=== PATIENT | female | born 1960 | race Caucasian/White ===

== ENCOUNTER → 2016-08-31 | Outpatient (CLI) | payer OTHER ==
--- NOTE | 2016-08-31 13:37 | REPMRS ---
Patient History The patient states she had a clinical breast exam in 08/03 Patient is postmenopausal and is nulliparous. Family history of breast cancer in mother at age 55. Took hormonal contraceptives for 20 years. Digital Woman Screen Mammo: August 31, 2016 - Exam #: [id number] Bilateral CC and MLO view(s) were taken. Technologist: Rosi Casey, Technologist Prior study comparison: July 04, 2015, digital woman screen mammo performed at [facility] to [facility]. June 07, 2014, digital woman screen mammo performed at [facility] to [facility]. FINDINGS: There are scattered fibroglandular densities. There has been no change in the appearance of the mammogram from the prior studies. There is a mild amount of residual fibroglandular tissue which is fairly symmetric. There is no interval development of dominant mass, architectural distortion, or clustered microcalcification suggestive of malignancy. ASSESSMENT: BI-RADS/ACR category 1 mammogram. Negative. Recommendation Routine screening mammogram in 1 year (for women over age 40). This mammogram was interpreted with the aid of an FDA-approved computer-aided dectection system. Electronically Signed By: Austin Guadarrama MD 08/31/16 [id number]
== END ==
LOC: M WHC 13:00
PROVIDERS: ATTEND Obstetrics & Gynecology
DX: Z12.31 Encounter for screening mammogram for malignant neoplasm of breast (principal); Z80.3 Family history of malignant neoplasm of breast; Z79.3 Long term (current) use of hormonal contraceptives

== ENCOUNTER → 2017-09-26 | Outpatient (CLI) | payer OTHER | LOC: M WHC 10:57 | DX: Z12.31 Encounter for screening mammogram for malignant neoplasm of breast (principal); Z80.3 Family history of malignant neoplasm of breast; Z78.0 Asymptomatic menopausal state | CPT/HCPCS: 77067 ==

== ENCOUNTER → 2019-01-13 | Outpatient (REF) | payer OTHER ==
[2019-01-16 14:28] LABS: HPV HYBRID CAPTURE II Negative (Negative)
== END ==
LOC: M SFHCWAGY 13:28
PROVIDERS: ATTEND Nurse Practitioner Women's Health
DX: Z12.4 Encounter for screening for malignant neoplasm of cervix (principal)
CPT/HCPCS: 87624; G0123

== ENCOUNTER → 2019-01-13 | Outpatient (CLI) | payer OTHER ==
--- NOTE | 2019-01-13 14:16 | REPMRS ---
Patient History The patient states she had a clinical breast exam in 12/2018. Family history of breast cancer at age 55 in mother. Took hormonal contraceptives for 20 years. 3D TOMOSYNTHESIS WAS PERFORMED. Digital Woman Screen Mammo: January 13, 2019 - Exam #: [id number] Bilateral CC and MLO view(s) were taken. Technologist: Rosi Casey, Technologist Prior study comparison: September 26, 2017, digital woman screen mammo performed at [facility]. August 31, 2016, digital woman screen mammo performed at [id number]. FINDINGS: There are scattered fibroglandular densities. There has been no change in the appearance of the mammogram from the prior studies. There is a mild amount of residual fibroglandular tissue which is fairly symmetric. There is no interval development of dominant mass, architectural distortion, or clustered microcalcification suggestive of malignancy. Assessment: BI-RADS/ACR category 1 mammogram. Negative Mammogram. Recommendation Routine screening mammogram in 1 year (for women over age 40). This mammogram was interpreted with the aid of an FDA-approved computer-aided dectection system. THE LIFETIME RISK OF BREAST CANCER IS 20.9%, THEREFORE SUPPLEMENTAL SCREENING MRI OF THE BREASTS IS RECOMMENDED IN 6 MONTHS. Electronically Signed By: Austin Guadarrama MD 01/13/19 [id number]
== END ==
LOC: M WHC 13:09
PROVIDERS: ATTEND Nurse Practitioner Women's Health
DX: Z12.31 Encounter for screening mammogram for malignant neoplasm of breast (principal); Z85.3 Personal history of malignant neoplasm of breast; Z92.0 Personal history of contraception

== ENCOUNTER → 2020-01-15 | Outpatient (CLI) | payer BC, OTHER ==
--- NOTE | 2020-01-15 15:26 | REPMRS ---
Patient History The patient states she had a clinical breast exam in 2019. Family history of breast cancer at age 55 in mother. Took hormonal contraceptives for 20 years. Digital Woman Screen Mammo: January 15, 2020 - Exam #: [id number] Bilateral CC and MLO view(s) were taken. Technologist: Serena Graham, Technologist Prior study comparison: January 13, 2019, bilateral digital woman screen mammo performed at [facility]. September 26, 2017, digital woman screen mammo performed at [facility]. August 31, 2016, digital woman screen mammo performed at [facility]. FINDINGS: There are scattered fibroglandular densities. The Volpara volumetric breast density category is:B. There has been no change in the appearance of the mammogram from the prior studies. There is a mild amount of scattered fibroglandular density which is fairly symmetric. There is no interval development of dominant mass, architectural distortion, or grouped microcalcification suggestive of malignancy. 3-D tomosynthesis shows no additional findings. Assessment: BI-RADS/ACR category 1 mammogram. Negative Mammogram. Recommendation Breast MRI of both breasts in 6 months. Routine screening mammogram of both breasts in 1 year (for women over age 40). This patient's Lifetime Breast Cancer Risk is estimated at 20.4 %. Annual screening Breast MRI scanniing is recommended for patient's whose lifetime risk assessment is over 20%. This mammogram was interpreted with the aid of an FDA-approved computer-aided dectection system. Electronically Signed By: Landon Antoine MD 01/15/20 0496
== END ==
LOC: M WHC 13:21
PROVIDERS: ATTEND Nurse Practitioner Women's Health
DX: Z12.31 Encounter for screening mammogram for malignant neoplasm of breast (principal); Z12.4 Encounter for screening for malignant neoplasm of cervix; N88.8 Other specified noninflammatory disorders of cervix uteri; Z80.3 Family history of malignant neoplasm of breast; Z92.0 Personal history of contraception
CPT/HCPCS: 77063; 77067; G0123

== ENCOUNTER → 2020-06-23 | Outpatient (CLI) | payer BC ==
[~2020-06-23] MED LIST: PROHANCE 279.3MG/ML 5ML VIAL As Ordered ONE
--- NOTE | 2020-06-24 08:08 | REP ---
INDICATION: FAM HX OF BREAST CA, DENSE BREASTS. COMPARISON: Comparison mammography January 15, 2020. TECHNIQUE: Three Evonne MRI imaging was performed with a dedicated breast coil. Axial, coronal, and sagittal T1 and T2 weighted scans were obtained with and without fat saturation in the usual fashion. The study includes dynamically acquired post gadolinium-enhanced imaging with image subtraction. Maximum intensity projection and multi planar reformation imaging is included as well. This study is interpreted with the aid of Noteleaf, an FDA approved computer aided detection (CAD) software program, on a dedicated breast MRI workstation. The gadolinium enhancement dose is 10 mL of intravenous ProHance. FINDINGS: There is a mild pattern of fibroglandular tissue present bilaterally. No suspicious morphologic abnormality is seen in either breast on T1 and T2 weighted high-resolution images. There is no evidence of axillary lymphadenopathy or cystic disease. Dynamically acquired sequential postcontrast images show no suspicious focus of enhancement and/or washout in either breast to suggest malignancy. There is a minimal pattern of background parenchymal enhancement. Subtraction images are unremarkable. IMPRESSION: BI-RADS category 1-bilateral breast MRI findings. Repeat screening breast MRI study recommended in 1 year. <Electronically signed by Landon Antoine > 06/24/20 0897
== END ==
LOC: M RAD 12:24
PROVIDERS: ATTEND Nurse Practitioner Women's Health
DX: R92.2 Inconclusive mammogram (principal); Z80.3 Family history of malignant neoplasm of breast; Z91.89 Other specified personal risk factors, not elsewhere classified
CPT/HCPCS: A9576; C8908

== ENCOUNTER → 2021-01-18 | Outpatient (CLI) | payer BC ==
--- NOTE | 2021-01-18 15:36 | REPMRS ---
Patient History The patient states she had a clinical breast exam in January 2021. Family history of breast cancer at age 55 in mother. Took hormonal contraceptives for 20 years. Patient states no breast complaints today. Patient has signed MRS History Sheet. Digital Woman Screen Mammo: January 18, 2021 - Exam #: [id number] Bilateral CC and MLO view(s) were taken. Technologist: Miranda Smith, Technologist Prior study comparison: January 15, 2020, bilateral digital woman screen mammo performed at [facility]. January 13, 2019, bilateral digital woman screen mammo performed at [facility]. September 26, 2017, digital woman screen mammo performed at [facility]. FINDINGS: There are scattered fibroglandular densities. The Volpara volumetric breast density category is:B. There has been no change in the appearance of the mammogram from the prior studies. There is a mild amount of scattered fibroglandular density which is fairly symmetric. There is no interval development of dominant mass, architectural distortion, or grouped microcalcification suggestive of malignancy. 3-D tomosynthesis shows no additional findings. Assessment: BI-RADS/ACR category 1 mammogram. Negative Mammogram. Recommendation Routine screening mammogram of both breasts in 1 year (for women over age 40). This patient's [facility] Lifetime Breast Cancer Risk is estimated at 19.7 %. This mammogram was interpreted with the aid of an FDA-approved computer-aided dectection system. Electronically Signed By: Landon Antoine MD 01/18/21 [id number]
== END ==
LOC: M WHC 13:27
PROVIDERS: ATTEND Nurse Practitioner Women's Health
DX: Z12.31 Encounter for screening mammogram for malignant neoplasm of breast (principal); Z80.3 Family history of malignant neoplasm of breast

== ENCOUNTER → 2021-01-18 | Outpatient (REF) | payer BC | LOC: M SFHCWAGY 17:28 | PROVIDERS: ATTEND Nurse Practitioner Women's Health | DX: Z12.4 Encounter for screening for malignant neoplasm of cervix (principal); N95.2 Postmenopausal atrophic vaginitis ==

== ENCOUNTER → 2022-02-05 | Outpatient (CLI) | payer BC | LOC: M WHC 09:31 | PROVIDERS: ATTEND Nurse Practitioner Family | DX: Z12.31 Encounter for screening mammogram for malignant neoplasm of breast (principal) ==

== ENCOUNTER → 2022-02-05 | Outpatient (REF) | payer BC | LOC: M PLALAB 11:30 | PROVIDERS: ATTEND Nurse Practitioner Family | DX: Z12.4 Encounter for screening for malignant neoplasm of cervix (principal) | CPT/HCPCS: 87624; G0123 ==

== ENCOUNTER → 2024-03-03 | Outpatient (CLI) | payer BC | LOC: M WHC 15:11 | PROVIDERS: ATTEND Obstetrics & Gynecology | DX: Z12.31 Encounter for screening mammogram for malignant neoplasm of breast (principal); R92.323 Mammographic fibroglandular density, bilateral breasts ==